=== PATIENT | male | born 1950 | race Caucasian/White ===

== ENCOUNTER 2023-03-13 16:13 | Emergency (ER) | payer MEDICARE, MEDICAID ==
[~2023-03-13] VITALS: Ht 177.8 cm; Wt 75.0 kg
[2023-03-13 16:18] VITALS: BP 168/109
[2023-03-13] MEDS ORDERED: fluorescein sod 1mg ophthalmic strip LEFTEYE ONE (16:50)
[2023-03-13] MEDS ORDERED: erythromycin ophthalmic ointment 1gm tube LEFTEYE ONE (16:50)
[2023-03-13] MEDS ORDERED: proparacaine 0.5% ophthalmic drops 15ml EACHEYE ONE (16:50)
[2023-03-13] MEDS ORDERED: ERYT1OIN6 LEFTEYE (17:33)
== END 2023-03-13 17:40 | disposition home or self-care (01) ==
LOC: ER 16:14
DX: S05.02XA Injury of conjunctiva and corneal abrasion without foreign body, left eye, initial encounter (principal); Z79.899 Other long term (current) drug therapy; X58.XXXA Exposure to other specified factors, initial encounter; Y93.89 Activity, other specified; Y92.89 Other specified places as the place of occurrence of the external cause; Y99.8 Other external cause status
CPT/HCPCS: 99283

== ENCOUNTER 2023-05-05 10:11 | Emergency (ER) | payer MEDICARE, MEDICAID ==
[~2023-05-05] VITALS: Ht 177.8 cm; Wt 77.3 kg
[2023-05-05 10:35] VITALS: BP 150/101; PULSE 86; RESP 16; TEMP 99; O2SAT 98
== END 2023-05-05 13:12 | disposition left against medical advice (07) ==
LOC: ER 10:11
DX: R09.81 Nasal congestion (principal); Z53.21 Procedure and treatment not carried out due to patient leaving prior to being seen by health care provider
CPT/HCPCS: 99281